=== PATIENT | male | born 1970 | race Caucasian/White ===

== ENCOUNTER → 2020-05-19 | Outpatient (CLI) | payer BC ==
--- NOTE | 2020-05-20 17:34 | RAD ---
XR ABDOMEN 2V Clinical Indication: Reason: KIDNEY STONE / Spl. Instructions: / History: Comparison: None. Findings: There is a questionable calculus in the upper pole of the right kidney measuring approximately 6 mm. Evaluation is limited due to overlying bowel. There are several phleboliths in the pelvis. No definit e ureteral calculus. Bowel gas pattern is nonobstructive. Bones unremarkable. IMPRESSION: Possible calculus in the upper pole of the right kidney. Electronically signed by: Miguelangel Tay MD (05/20/2020 5:31 PM) [id number]
== END ==
LOC: RAD 12:26
PROVIDERS: ATTEND Family Medicine
DX: N20.1 Calculus of ureter (principal)
CPT/HCPCS: 74019